=== PATIENT | female | born 1965 | race Two or more races ===

== ENCOUNTER 2016-11-11 19:26 | Emergency (ER) | payer SELFPAY ==
[~2016-11-11] VITALS: Ht 162.6 cm; Wt 65.8 kg
[2016-11-11 19:40] VITALS: BP 117/71
[2016-11-11 19:58] VITALS: BP 117/71
--- NOTE | 2016-11-12 14:24 | Emergency Room Report ---
History of Present Illness General Chief Complaint: Medical Clearance Source: Patient Present Illness HPI 51-year-old female presents to ED for evaluation. Patient states she is here to get medical clearance for a flight. States that she is visiting here and broke her right ankle. Had surgery at [facility] on 11/07/16. Patient is here to get and so that she can fly. Patient is here in a cast. Denies any pain. Denies any chest pain shortness of breath. No other aggravating or leading factors. No other associated symptoms Allergies: Coded Allergies: Cultivated Oat Pollen (Verified Allergy, Unknown, 11/11/16) NUT - UNSPECIFIED (Verified Allergy, Unknown, 11/11/16) Patient History Past Medical History: none Past Surgical History: other - R ankle sx 11/07/16 Pertinent Family History: none Social History: Denies: alcohol use, drug use, smoking Immunizations: UTD Reviewed Nursing Documentation: PMH: Agreed, PSxH: Agreed Nursing Documentation-PMH Past Medical History: No History, Except For Review of Systems All Other Systems: negative except mentioned in HPI Physical Exam Vital Signs Date Time Temp Pulse Resp B/P Pulse Ox O2 Delivery O2 Flow Rate FiO2 11/11/16 19:32 99.1 79 17 117/71 96 Room Air Sp02 EP Interpretation: reviewed, normal General Appearance: no apparent distress, alert, GCS 15, non-toxic Head: normocephalic Eyes: bilateral eye PERRL, bilateral eye normal inspection ENT: normal ENT inspection Neck: normal inspection Respiratory: normal inspection Cardiovascular #1: normal inspection Gastrointestinal: normal inspection Rectal: deferred Genitourinary: no CVA tenderness Musculoskeletal: other - short leg cast on RLE Neurologic: alert, oriented x3, responsive, motor strength/tone normal, sensory intact, speech normal Psychiatric: normal inspection Skin: normal inspection Lymphatic: normal inspection Medical Decision Making Diagnostic Impression: Primary Impression: Encounter for wound re-check ER Course Hospital Course 51-year-old female presents to ED for medical clearance for a flight. Status post right ankle surgery on 11/07/16 Clinical course Patient placed on stretcher. Physical exam reveals a female in no acute distress. There is a short leg cast on her right leg. There is normal sensation to the toes that she is able to move. Patient is requesting medical clearance. I explained to the patient that surgery was not performed here and she needs clearance specifically from the surgeon who performed the surgery. Patient and family understand and I cannot provide medical clearance at this time and they need to followup with the surgeon Diagnosis - encounter for wound re-check Stable and discharged to home. obtain medical clearance from surgeon. Last Vital Signs Date Time Temp Pulse Resp B/P Pulse Ox O2 Delivery O2 Flow Rate FiO2 11/11/16 19:58 99.1 79 17 117/71 96 Room Air Status: improved Disposition: HOME, SELF-CARE Condition: Stable Referrals: NOT CHOSEN IPA/,REFERRING (PCP) Patient Instructions: Ankle Fracture With Rehab-SportsMed Additional Instructions: you need to followup with the surgeon who performed the surgery for medical clearance JAMA ELLIS M.D. Nov 12, 2016 14:24
== END 2016-11-11 19:58 | disposition home or self-care (01) ==
LOC: EMR 19:57
DX: S82.91XD Unspecified fracture of right lower leg, subsequent encounter for closed fracture with routine healing (principal); X58.XXXD Exposure to other specified factors, subsequent encounter; Z91.018 Allergy to other foods
CPT/HCPCS: 99282